=== PATIENT | male | born 1970 | race Caucasian/White ===

== ENCOUNTER 2017-04-09 09:40 | Emergency (ER) | payer OTHER ==
[~2017-04-09] VITALS: Ht 180.3 cm; Wt 113.6 kg
[~2017-04-09 09:40] MED LIST: CIPR-278 PO; DOCU-119 PO; VICOT PO
[2017-04-09] MEDS ORDERED: KETOROLAC TROMETHAMINE 60 MG/2 ML VIAL IM ONE (10:15)
[2017-04-09 12:11] VITALS: BP 120/70
== END 2017-04-09 12:17 | disposition home or self-care (01) ==
LOC: EMS 09:43
DX: S16.1XXA Strain of muscle, fascia and tendon at neck level, initial encounter (principal); S46.912A Strain of unspecified muscle, fascia and tendon at shoulder and upper arm level, left arm, initial encounter; F17.210 Nicotine dependence, cigarettes, uncomplicated; V89.2XXA Person injured in unspecified motor-vehicle accident, traffic, initial encounter; Y93.89 Activity, other specified; Y92.89 Other specified places as the place of occurrence of the external cause; Y99.8 Other external cause status
CPT/HCPCS: 72040; 96372; 99284; J1885